=== PATIENT | male | born 1960 | race Caucasian/White ===

== ENCOUNTER → 2020-02-13 11:58 | Outpatient (CLI) | payer BC, SELFPAY ==
--- NOTE | ~2020-02-13 | MR_ITS ---
EXAMINATION: MR cervical spine wo con DATE: 02/13/2020 12:39 INDICATION: Neck pain. TECHNIQUE: Magnetic resonance imaging (MRI) of the cervical spine was performed without intravenous c ontrast. Sequences included sagittal T2-weighted FSE, sagittal STIR FSE, sagittal T1-weighted FSE, ax ial MERGE, and axial T2-weighted FSE. COMPARISON: None FINDINGS: There is hypolordosis of cervical spine. There is 1 mm retrolisthesis of C5 on C6. Vertebra l body heights are normal. There is mildly decreased disc height at C4-C5, moderately decreased disc height at C5-C6 and C6-C7, and mildly decreased disc height at C7-T1. The spinal cord signal intensit y is normal. The following disc levels are specifically discussed: C2-C3: The disc does not extend beyond the endplate margin. There is mild right uncovertebral joint o steoarthritis. There is severe right and mild left facet joint osteoarthritis. There is mild right ne ural foraminal stenosis. There is no central canal stenosis. C3-C4: The disc does not extend beyond the endplate margin. There is no uncovertebral joint osteoarth ritis. There is mild bilateral facet joint osteoarthritis. There is no neural foraminal stenosis. The re is no central canal stenosis. C4-C5: The disc does not extend beyond the endplate margin. There is no uncovertebral joint osteoarth ritis. There is mild left facet joint osteoarthritis. There is no neural foraminal stenosis. There is no central canal stenosis. C5-C6: The disc is bulging. There is severe bilateral uncovertebral joint osteoarthritis. There is mi ld bilateral facet joint osteoarthritis. There is mild bilateral neural foraminal stenosis. There is mild central canal stenosis with ventral indentation of spinal cord. C6-C7: The disc is bulging. There is severe bilateral uncovertebral joint osteoarthritis. There is no facet joint osteoarthritis. There is mild right and moderate left neural foraminal stenosis. There i s mild central canal stenosis with ventral indentation of spinal cord. C7-T1: There is a central extrusion. There is mild bilateral uncovertebral joint osteoarthritis. Ther e is no facet joint osteoarthritis. There is mild bilateral neural foraminal stenosis. There is mild central canal stenosis. IMPRESSION: 1. Moderate cervical spondylosis. Reviewed, dictated and finalized at location A.
== END ==
PROVIDERS: Visit Provider Nurse Practitioner Family
DX: M54.2 Cervicalgia (principal); M47.22 Other spondylosis with radiculopathy, cervical region
CPT/HCPCS: 72141

== ENCOUNTER 2025-03-14 07:34 | Outpatient (CLI) | payer BC, SELFPAY ==
--- NOTE | ~2025-03-14 | XR_ITS ---
[id number] 03/14/2025 07:49 Indication: Cervical spondylosis Procedure: 3 views cervical spine Comparison: No prior studies for comparison. Findings: Straightening of cervical lordosis. There is degenerative disc disease and spondylosis at C 5-6 and C6-7. No prevertebral soft tissue abnormality. There is multilevel uncinate and facet hypertr ophy. Lung apices are unremarkable. Odontoid process is normal. No acute fracture or traumatic malali gnment. Impression: 1: Moderate cervical spondylosis. Reviewed, dictated and finalized at location A. Impression: 1: Moderate cervical spondylosis.
== END 2025-03-14 07:35 | disposition home or self-care (01) ==
LOC: MICIMG 07:38
PROVIDERS: PCP Nurse Practitioner Family; Visit Provider Nurse Practitioner Family
DX: M47.812 Spondylosis without myelopathy or radiculopathy, cervical region (principal)
CPT/HCPCS: 72040

== ENCOUNTER 2025-03-27 07:46 | Outpatient (CLI) | payer BC, SELFPAY ==
--- NOTE | ~2025-03-27 | MR_ITS ---
EXAMINATION: MR cervical spine wo con, 03/27/2025 8:00 CDT HISTORY: cervical spondylosis COMPARISON: None TECHNIQUE: Multi-planar multi-sequence images were obtained of the cervical spine without contrast per protocol. FINDINGS: Moderate loss of vertebral height throughout. There is no fracture or subluxation. Marrow signal is appropriate. Posterior alignment is intact. There is no abnormal signal in the posterior elements or the clivus. The cerebellar tonsils are normal in location. There is no abnormal signal in the cord Severe loss of disc height at C5-6 and C6-7 with moderate disc desiccation and endplate degenerative changes Appropriate flow voids are maintained. The soft tissues are unremarkable C2-3: No canal or foraminal stenosis. C3-4: Circumferential bulging of the disc with facet hypertrophy. Moderate bilateral foramina stenosis C4-5: Circumferential bulging of the disc with facet hypertrophy, mild bilateral foramina stenosis, no canal stenosis C5-6: Circumferential bulging of the disc with facet hypertrophy. Moderate to severe bilateral foramina and moderate canal stenosis. C6-7: Circumferential bulging of the disc asymmetrically to the left with severe left foraminal narrowing moderate canal stenosis. C7-T1: No canal or foraminal stenosis IMPRESSION: Degenerative changes detailed above most marked at C5-6. Reviewed, dictated and finalized at location A.
== END 2025-03-27 07:47 | disposition home or self-care (01) ==
LOC: MICIMG 07:48
PROVIDERS: PCP Nurse Practitioner Family; Visit Provider Nurse Practitioner Family
DX: M47.812 Spondylosis without myelopathy or radiculopathy, cervical region (principal); M50.322 Other cervical disc degeneration at C5-C6 level
CPT/HCPCS: 72141